=== PATIENT | male | born 1950 | race Caucasian/White ===

== ENCOUNTER 2022-10-20 10:32 | Inpatient (IN) | payer OTHER ==
[~2022-10-20] VITALS: Ht 167.6 cm; Wt 74.4 kg
[2022-10-20 10:47] VITALS: BP_SYST 106
[2022-10-20 11:27] LABS: BASOPHILS % (AUTO) 0.4 % (0.0-2.0); EOSINOPHILS # (AUTO) 0.1 K/uL (0.0-0.4); EOSINOPHILS % (AUTO) 1.3 % (0.0-4.0); HEMATOCRIT 23.8 % (36-54); HEMOGLOBIN 7.8 g/dL (14.0-18.0); LYMPHOCYTES # (AUTO) 1.5 K/uL (1.0-5.5); LYMPHOCYTES % (AUTO) 20.8 % (20.5-51.5); MEAN CORPUSCULAR HEMOGLOBIN 25 pg (27-31); MEAN CORPUSCULAR HGB CONC 33 % (32-36); MEAN CORPUSCULAR VOLUME 76 fL (79.0-98.0); MONOCYTES # (AUTO) 0.7 K/uL (0.0-1.0); MONOCYTES % (AUTO) 8.8 % (1.7-9.3); NEUTROPHILS # (AUTO) 5.1 K/uL (1.8-7.7); NEUTROPHILS % (AUTO) 68.7 % (40.0-70.0); PLATELET COUNT (AUTO) 271 K/uL (130-430); RED BLOOD CELL COUNT(AUTO) 3.13 MIL/uL (4.2-6.2); WHITE BLOOD COUNT (AUTO) 7.4 K/uL (4.8-10.8)
[2022-10-20] MEDS ORDERED: KETOROLAC TROMETHAMINE 30 MG VIAL IVP ONE (11:45)
[2022-10-20] MEDS ORDERED: GABAPENTIN 300 MG CAPSULE PO ONE (11:45)
[2022-10-20 11:50] LABS: ANION GAP 11 (5-15); CALCIUM 8.7 mg/dL (8.4-11.0); CHLORIDE 98 mmol/L (98-107); CREATININE 1.68 mg/dL (0.55-1.30); GLUCOSE 248 mg/dL (70-99); UREA NITROGEN, BLOOD 64 mg/dL (8-21)
[2022-10-20 11:57] LABS: ALANINE AMINOTRANSFERASE 16 U/L (12-78); ALBUMIN 2.9 g/dL (3.4-4.8); ASPARTATE AMINOTRANSFERASE 44 U/L (10-37); TOTAL BILIRUBIN 0.4 mg/dL (0.0-1.0)
[2022-10-20] MEDS ORDERED: NACL 0.9% 1,000 ML IV ONE (12:15)
[2022-10-20] MEDS ORDERED: *LOVENOX 1MG/KG Q24H/PHARMACY XX ONE (13:45)
[2022-10-20 14:35] LABS: BILIRUBIN,URINE NEGATIVE (NEGATIVE); BLOOD, URINE NEGATIVE (NEGATIVE); CLARITY/URINE CLEAR (CLEAR); COLOR,URINE YELLOW (YELLOW); GLUCOSE,URINE NEGATIVE (NEGATIVE); KETONES,URINE NEGATIVE (NEGATIVE); LEUKOCYTE ESTERASE ,URINE NEGATIVE (NEGATIVE); NITRITE, URINE NEGATIVE (NEGATIVE); PH,URINE 5.5 (5.0-8.0); PROTEIN URINE NEGATIVE (NEGATIVE); UROBILINOGEN,URINE 0.2 (0.2-1.0)
[2022-10-20] MEDS ORDERED: KETOROLAC TROMETHAMINE 30 MG VIAL ONE (16:40)
[2022-10-20] MEDS ORDERED: ACETAMINOPHEN 500 MG TABLET PO ONE (16:45)
[2022-10-20] MEDS ORDERED: FAMO40TA7 PO (17:04)
[2022-10-20] MEDS ORDERED: LIP40 PO (17:04)
[2022-10-20] MEDS ORDERED: FERR325T30 PO (17:04)
[2022-10-20] MEDS ORDERED: DOCU250C14 PO (17:04)
[2022-10-20] MEDS ORDERED: ALBU2TAB17 PO (17:04)
[2022-10-20] MEDS ORDERED: ASA81 PO (17:04)
[2022-10-20] MEDS ORDERED: APIX5TAB4 PO ×2 (17:04→22:02)
[2022-10-20] MEDS ORDERED: AMLO2.5T2 PO (17:04)
[2022-10-20 17:48] VITALS: BP_SYST 123
[2022-10-20 17:56] VITALS: BP_SYST 123
[2022-10-20] MEDS ORDERED: INSULIN LISPRO SLIDING SCALE 100 UNITS/ML, 3 ML VIAL (humaLOG) SUBCUT PRN (19:15)
[2022-10-20 20:00] VITALS: BP_SYST 108
[2022-10-20] MEDS: APIXABAN 2.5 MG TABLET PO SCH (20:57)
[2022-10-20] MEDS: AMIODARONE HCL 200 MG TABLET PO SCH (21:02)
[2022-10-20] MEDS ORDERED: DEXTROSE 50% JECT 50 ML DISP.SYRIN IVP PRN (22:00)
[2022-10-20] MEDS ORDERED: IBUP-1970 PO (22:02)
[2022-10-20] MEDS ORDERED: MECL-225 PO (22:02)
[2022-10-20] MEDS ORDERED: GABA-533 PO ×2 (22:02)
[2022-10-20] MEDS ORDERED: FURO40TA5 PO (22:02)
[2022-10-20] MEDS ORDERED: LISI20TA30 PO (22:02)
[2022-10-20] MEDS ORDERED: LACT10SO6 PO (22:02)
[2022-10-20] MEDS ORDERED: [UNRECOGNIZED DRUG - CODE] PO (22:02)
[2022-10-20] MEDS ORDERED: GLIM1TAB PO (22:02)
[2022-10-20] MEDS ORDERED: MONT-40 PO (22:03)
[2022-10-20] MEDS ORDERED: RELU120T (22:03)
[2022-10-20] MEDS ORDERED: TRAZ-250 PO (22:03)
[2022-10-20] MEDS ORDERED: OMEP-268 PO (22:03)
[2022-10-20] MEDS ORDERED: PROC-14 PO (22:03)
[2022-10-20] MEDS ORDERED: MOM PO (22:03)
[2022-10-20] MEDS ORDERED: POTA-197 PO (22:03)
[2022-10-20] MEDS ORDERED: METF-518 PO (22:03)
[2022-10-20] MEDS ORDERED: TRAM50TA2 PO (22:03)
[2022-10-20] MEDS ORDERED: METO25TA3 PO (22:03)
[2022-10-20] MEDS ORDERED: DOCU250C75 PO (22:03)
[2022-10-20] MEDS ORDERED: PHEDM120 PO (22:03)
[2022-10-20] MEDS ORDERED: PIOG30TA70 PO (22:03)
[2022-10-20] MEDS ORDERED: BLOO-360 XX (22:03)
[2022-10-20] MEDS ORDERED: POTASSIUM CHLORIDE 20 MEQ TAB.PRT.SR PO PRN (22:15)
[2022-10-20] MEDS ORDERED: IPRATROPIUM/ALBUTEROL SULFATE 3 ML AMPUL.NEB (DUONEB) INH PRN (22:15)
[2022-10-20] MEDS: traMADol HCL HCL 50 MG TABLET (ULTRAM) PO PRN (23:20)
[2022-10-20] MEDS: GABAPENTIN 100 MG CAPSULE PO SCH (23:22)
[2022-10-20 23:30] VITALS: BP_SYST 123
[2022-10-21] VITALS (8 sets, daily range): BP systolic 94–128
[2022-10-21] MEDS ORDERED: traZODone HCL 50 MG TABLET (DESYREL) PO ONE (02:30)
[2022-10-21] MEDS ORDERED: MORPHINE 2 MG/ML INJ. SYRINGE IVP ONE (02:30)
[2022-10-21] MEDS: ACETAMINOPHEN 325 MG TABLET PO PRN ×2 (02:40→20:34)
[2022-10-21 06:39] LABS: BASOPHILS % (AUTO) 0.4 % (0.0-2.0); EOSINOPHILS # (AUTO) 0.1 K/uL (0.0-0.4); LYMPHOCYTES # (AUTO) 2.2 K/uL (1.0-5.5); LYMPHOCYTES % (AUTO) 30.6 % (20.5-51.5); MEAN CORPUSCULAR HEMOGLOBIN 25 pg (27-31); MEAN CORPUSCULAR HGB CONC 33 % (32-36); MEAN CORPUSCULAR VOLUME 76 fL (79.0-98.0); MONOCYTES # (AUTO) 0.6 K/uL (0.0-1.0); MONOCYTES % (AUTO) 8.1 % (1.7-9.3); NEUTROPHILS # (AUTO) 4.2 K/uL (1.8-7.7); NEUTROPHILS % (AUTO) 58.9 % (40.0-70.0); PLATELET COUNT (AUTO) 263 K/uL (130-430); RED BLOOD CELL COUNT(AUTO) 2.77 MIL/uL (4.2-6.2); RED CELL DISTRIBUTION WIDTH 17.9 % (9.0-15.0); RETICULOCYTE COUNT 2.2 % (0.5-1.5); WHITE BLOOD COUNT (AUTO) 7.1 K/uL (4.8-10.8)
[2022-10-21 07:43] LABS: TOTAL IRON BIND. CAPACITY 219 ug/dL (250-450)
[2022-10-21 07:53] LABS: ALANINE AMINOTRANSFERASE 17 U/L (12-78); ALBUMIN 2.7 g/dL (3.4-4.8); ANION GAP 10 (5-15); ASPARTATE AMINOTRANSFERASE 36 U/L (10-37); CALCIUM 8.8 mg/dL (8.4-11.0); CHLORIDE 100 mmol/L (98-107); CHOLESTEROL 183 mg/dL (<200); CREATININE 1.74 mg/dL (0.55-1.30); GLUCOSE 142 mg/dL (70-99); HDL CHOLESTEROL 50 mg/dL (>45); THYROID STIMULATING HORMONE 1.79 uIu/mL (0.34-4.82); TOTAL BILIRUBIN 0.3 mg/dL (0.0-1.0); TRIGLYCERIDES 97 mg/dL (30-150); UREA NITROGEN, BLOOD 68 mg/dL (8-21)
[2022-10-21 07:55] LABS: INR 1.2 (0.80-1.20); PROTHROMBIN TIME 12.1 SECS (9.5-12.5)
[2022-10-21 08:02] LABS: HEMOGLOBIN 6.9 g/dL (14.0-18.0)
[2022-10-21] MEDS: ASPIRIN 81 MG TAB.CHEW PO SCH (08:54)
[2022-10-21] MEDS: FUROSEMIDE 40 MG TABLET PO SCH (08:55)
[2022-10-21] MEDS: AMIODARONE HCL 200 MG TABLET PO SCH ×2 (08:55→20:35)
[2022-10-21] MEDS: ALBUTEROL SULFATE 2 MG TABLET PO SCH ×3 (08:56→21:00)
[2022-10-21] MEDS: DOCUSATE SODIUM 250 MG CAPSULE PO SCH (08:56)
[2022-10-21] MEDS: ATORVASTATIN 20 MG TABLET PO SCH (08:57)
[2022-10-21] MEDS: GABAPENTIN 100 MG CAPSULE PO SCH ×3 (08:57→20:34)
[2022-10-21] MEDS: FERROUS SULFATE 325 MG TABLET.DR PO SCH (08:57)
[2022-10-21] MEDS: FAMOTIDINE 20 MG TABLET PO SCH (08:57)
[2022-10-21] MEDS: traMADol HCL HCL 50 MG TABLET (ULTRAM) PO PRN ×2 (08:58→18:32)
[2022-10-21] MEDS: APIXABAN 2.5 MG TABLET PO SCH ×2 (08:59→20:40)
[2022-10-21] MEDS: lisinopriL 20 MG TABLET PO SCH (09:00)
[2022-10-21] MEDS ORDERED: DOCUSATE SODIUM 250 MG CAPSULE PO SCH (09:00)
[2022-10-21] MEDS ORDERED: METOPROLOL SUCCINATE 25 MG TAB.SR.24H (TOPROL XL) PO SCH (09:00)
[2022-10-21] MEDS: METOPROLOL SUCCINATE 25 MG TAB.SR.24H (TOPROL XL) PO SCH (12:16)
[2022-10-21] MEDS: INSULIN REGULAR, HUMAN 100 UNITS/ML, 3 ML VIAL (humuLIN R) SUBCUT PRN ×3 (12:19→20:41)
[2022-10-21 17:17] LABS: BILIRUBIN,URINE NEGATIVE (NEGATIVE); BLOOD, URINE NEGATIVE (NEGATIVE); CLARITY/URINE CLEAR (CLEAR); COLOR,URINE YELLOW (YELLOW); GLUCOSE,URINE NEGATIVE (NEGATIVE); KETONES,URINE NEGATIVE (NEGATIVE); LEUKOCYTE ESTERASE ,URINE NEGATIVE (NEGATIVE); NITRITE, URINE NEGATIVE (NEGATIVE); PH,URINE 5.5 (5.0-8.0); PROTEIN URINE NEGATIVE (NEGATIVE); UROBILINOGEN,URINE 0.2 (0.2-1.0)
[2022-10-21] MEDS: MONTELUKAST 10 MG TABLET PO SCH (17:18)
[2022-10-21] MEDS: traZODone HCL 50 MG TABLET (DESYREL) PO SCH (20:33)
[2022-10-22 00:36] VITALS: BP_SYST 98
[2022-10-22] MEDS: traMADol HCL HCL 50 MG TABLET (ULTRAM) PO PRN ×3 (06:12→17:27)
[2022-10-22 06:27] LABS: BASOPHILS % (AUTO) 0.6 % (0.0-2.0); EOSINOPHILS # (AUTO) 0.2 K/uL (0.0-0.4); EOSINOPHILS % (AUTO) 2.1 % (0.0-4.0); HEMATOCRIT 27.7 % (36-54); HEMOGLOBIN 9.2 g/dL (14.0-18.0); LYMPHOCYTES # (AUTO) 1.5 K/uL (1.0-5.5); LYMPHOCYTES % (AUTO) 20.3 % (20.5-51.5); MEAN CORPUSCULAR HEMOGLOBIN 26 pg (27-31); MEAN CORPUSCULAR HGB CONC 33 % (32-36); MEAN CORPUSCULAR VOLUME 78 fL (79.0-98.0); MONOCYTES # (AUTO) 0.6 K/uL (0.0-1.0); MONOCYTES % (AUTO) 8.6 % (1.7-9.3); NEUTROPHILS % (AUTO) 68.4 % (40.0-70.0); PLATELET COUNT (AUTO) 252 K/uL (130-430); RED BLOOD CELL COUNT(AUTO) 3.56 MIL/uL (4.2-6.2); RED CELL DISTRIBUTION WIDTH 18.9 % (9.0-15.0); WHITE BLOOD COUNT (AUTO) 7.3 K/uL (4.8-10.8)
[2022-10-22 06:44] LABS: ANION GAP 9 (5-15); CALCIUM 9.5 mg/dL (8.4-11.0); CHLORIDE 101 mmol/L (98-107); CREATININE 1.43 mg/dL (0.55-1.30); GLUCOSE 164 mg/dL (70-99); UREA NITROGEN, BLOOD 51 mg/dL (8-21)
[2022-10-22 07:50] VITALS: BP_SYST 110
[2022-10-22 08:06] LABS: FREE PSA >50.00 ng/mL
[2022-10-22] MEDS: METOPROLOL SUCCINATE 25 MG TAB.SR.24H (TOPROL XL) PO SCH (08:10)
[2022-10-22] MEDS: ALBUTEROL SULFATE 2 MG TABLET PO SCH ×3 (08:10→21:29)
[2022-10-22] MEDS: ASPIRIN 81 MG TAB.CHEW PO SCH (08:10)
[2022-10-22] MEDS: lisinopriL 20 MG TABLET PO SCH (08:11)
[2022-10-22] MEDS: DOCUSATE SODIUM 250 MG CAPSULE PO SCH (08:11)
[2022-10-22] MEDS: FAMOTIDINE 20 MG TABLET PO SCH (08:11)
[2022-10-22] MEDS: ATORVASTATIN 20 MG TABLET PO SCH (08:11)
[2022-10-22] MEDS: FERROUS SULFATE 325 MG TABLET.DR PO SCH (08:12)
[2022-10-22] MEDS: FUROSEMIDE 40 MG TABLET PO SCH (08:12)
[2022-10-22] MEDS: GABAPENTIN 100 MG CAPSULE PO SCH ×3 (08:13→21:13)
[2022-10-22] MEDS: AMIODARONE HCL 200 MG TABLET PO SCH ×2 (08:13→21:00)
[2022-10-22] MEDS: APIXABAN 2.5 MG TABLET PO SCH ×2 (08:18→21:25)
[2022-10-22] MEDS: INSULIN REGULAR, HUMAN 100 UNITS/ML, 3 ML VIAL (humuLIN R) SUBCUT PRN ×3 (11:23→21:25)
[2022-10-22 11:25] VITALS: BP_SYST 103
[2022-10-22] MEDS ORDERED: ACETAMINOPHEN 325 MG TABLET PO PRN (12:30)
[2022-10-22] MEDS ORDERED: DICLOFENAC SODIUM 25 MG TABLET.DR PO ONE (12:45)
[2022-10-22] MEDS ORDERED: MULTIVITS,CA,MINERALS/IRON/FA 1 TABLET PO ONE (12:45)
[2022-10-22 13:06] LABS: % FREE PSA >7.6 % (.)
[2022-10-22 15:35] VITALS: BP_SYST 136
[2022-10-22] MEDS: MONTELUKAST 10 MG TABLET PO SCH (17:27)
[2022-10-22 21:00] VITALS: BP_SYST 98
[2022-10-22] MEDS: traZODone HCL 50 MG TABLET (DESYREL) PO SCH (21:13)
[2022-10-22] MEDS: DICLOFENAC SODIUM 25 MG TABLET.DR PO SCH (21:14)
[2022-10-23 06:00] VITALS: BP_SYST 117
[2022-10-23 07:18] LABS: BASOPHILS % (AUTO) 0.5 % (0.0-2.0); EOSINOPHILS # (AUTO) 0.3 K/uL (0.0-0.4); EOSINOPHILS % (AUTO) 4.4 % (0.0-4.0); HEMATOCRIT 26.4 % (36-54); HEMOGLOBIN 8.7 g/dL (14.0-18.0); LYMPHOCYTES # (AUTO) 1.8 K/uL (1.0-5.5); LYMPHOCYTES % (AUTO) 29.3 % (20.5-51.5); MEAN CORPUSCULAR HEMOGLOBIN 26 pg (27-31); MEAN CORPUSCULAR HGB CONC 33 % (32-36); MEAN CORPUSCULAR VOLUME 79 fL (79.0-98.0); MONOCYTES # (AUTO) 0.5 K/uL (0.0-1.0); MONOCYTES % (AUTO) 7.9 % (1.7-9.3); NEUTROPHILS # (AUTO) 3.6 K/uL (1.8-7.7); NEUTROPHILS % (AUTO) 57.9 % (40.0-70.0); PLATELET COUNT (AUTO) 231 K/uL (130-430); RED BLOOD CELL COUNT(AUTO) 3.35 MIL/uL (4.2-6.2); RED CELL DISTRIBUTION WIDTH 18.9 % (9.0-15.0); WHITE BLOOD COUNT (AUTO) 6.1 K/uL (4.8-10.8)
[2022-10-23 07:24] LABS: ALANINE AMINOTRANSFERASE 22 U/L (12-78); ALBUMIN 2.4 g/dL (3.4-4.8); ANION GAP 10 (5-15); ASPARTATE AMINOTRANSFERASE 81 U/L (10-37); CALCIUM 9.5 mg/dL (8.4-11.0); CHLORIDE 100 mmol/L (98-107); CREATININE 1.58 mg/dL (0.55-1.30); GLUCOSE 134 mg/dL (70-99); TOTAL BILIRUBIN 0.3 mg/dL (0.0-1.0); UREA NITROGEN, BLOOD 53 mg/dL (8-21)
[2022-10-23 08:55] VITALS: BP_SYST 108
[2022-10-23] MEDS: DOCUSATE SODIUM 250 MG CAPSULE PO SCH ×2 (09:37→22:14)
[2022-10-23] MEDS: MULTIVITS,CA,MINERALS/IRON/FA 1 TABLET PO SCH (09:37)
[2022-10-23] MEDS: FERROUS SULFATE 325 MG TABLET.DR PO SCH (09:38)
[2022-10-23] MEDS: ASPIRIN 81 MG TAB.CHEW PO SCH (09:38)
[2022-10-23] MEDS: FAMOTIDINE 20 MG TABLET PO SCH (09:38)
[2022-10-23] MEDS: ATORVASTATIN 20 MG TABLET PO SCH (09:38)
[2022-10-23] MEDS: AMIODARONE HCL 200 MG TABLET PO SCH ×2 (09:39→22:14)
[2022-10-23] MEDS: lisinopriL 20 MG TABLET PO SCH (09:39)
[2022-10-23] MEDS: FUROSEMIDE 40 MG TABLET PO SCH (09:40)
[2022-10-23] MEDS: METOPROLOL SUCCINATE 25 MG TAB.SR.24H (TOPROL XL) PO SCH (09:40)
[2022-10-23] MEDS: ALBUTEROL SULFATE 2 MG TABLET PO SCH ×3 (09:40→22:34)
[2022-10-23] MEDS: GABAPENTIN 100 MG CAPSULE PO SCH ×3 (09:41→22:14)
[2022-10-23] MEDS: APIXABAN 2.5 MG TABLET PO SCH (09:45)
[2022-10-23] MEDS: DICLOFENAC SODIUM 25 MG TABLET.DR PO SCH ×2 (09:50→22:14)
[2022-10-23] MEDS: INSULIN REGULAR, HUMAN 100 UNITS/ML, 3 ML VIAL (humuLIN R) SUBCUT PRN (12:45)
[2022-10-23] MEDS ORDERED: LACTULOSE 20 GM/30 ML UDC PO ONE (15:00)
[2022-10-23] MEDS ORDERED: DOCUSATE SODIUM 250 MG CAPSULE PO ONE (15:15)
[2022-10-23] MEDS ORDERED: PSYLLIUM HUSK 1 PKT PACKET PO ONE (15:30)
[2022-10-23] MEDS: traMADol HCL HCL 50 MG TABLET (ULTRAM) PO PRN ×2 (15:46→23:31)
[2022-10-23 15:48] VITALS: BP_SYST 102
[2022-10-23] MEDS: MONTELUKAST 10 MG TABLET PO SCH (17:34)
[2022-10-23 20:00] VITALS: BP_SYST 109
[2022-10-23] MEDS ORDERED: APIXABAN 2.5 MG TABLET PO SCH (21:00)
[2022-10-23] MEDS: PSYLLIUM HUSK 1 PKT PACKET PO SCH (22:16)
[2022-10-23] MEDS: traZODone HCL 50 MG TABLET (DESYREL) PO SCH (22:16)
[2022-10-23] MEDS: PANTOPRAZOLE SODIUM 40 MG/VIAL (PROTONIX) IVP SCH (22:26)
[2022-10-24 00:13] VITALS: BP_SYST 145
[2022-10-24] MEDS: INSULIN REGULAR, HUMAN 100 UNITS/ML, 3 ML VIAL (humuLIN R) SUBCUT PRN (06:31)
[2022-10-24 06:48] LABS: BASOPHILS # (AUTO) 0.1 K/uL (0.0-0.2); BASOPHILS % (AUTO) 0.7 % (0.0-2.0); EOSINOPHILS # (AUTO) 0.4 K/uL (0.0-0.4); EOSINOPHILS % (AUTO) 4.8 % (0.0-4.0); HEMATOCRIT 27.5 % (36-54); LYMPHOCYTES % (AUTO) 23.3 % (20.5-51.5); MEAN CORPUSCULAR HEMOGLOBIN 26 pg (27-31); MEAN CORPUSCULAR HGB CONC 33 % (32-36); MEAN CORPUSCULAR VOLUME 78 fL (79.0-98.0); MONOCYTES # (AUTO) 0.6 K/uL (0.0-1.0); MONOCYTES % (AUTO) 7.2 % (1.7-9.3); NEUTROPHILS # (AUTO) 5.4 K/uL (1.8-7.7); PLATELET COUNT (AUTO) 263 K/uL (130-430); RED BLOOD CELL COUNT(AUTO) 3.51 MIL/uL (4.2-6.2); RED CELL DISTRIBUTION WIDTH 19.1 % (9.0-15.0); WHITE BLOOD COUNT (AUTO) 8.5 K/uL (4.8-10.8)
[2022-10-24 07:16] LABS: ANION GAP 9 (5-15); CALCIUM 9.3 mg/dL (8.4-11.0); CHLORIDE 99 mmol/L (98-107); CREATININE 1.49 mg/dL (0.55-1.30); GLUCOSE 162 mg/dL (70-99); UREA NITROGEN, BLOOD 51 mg/dL (8-21)
[2022-10-24 08:00] VITALS: BP_SYST 128
[2022-10-24] MEDS ORDERED: METF-381 PO (08:59)
[2022-10-24] MEDS: ASPIRIN 81 MG TAB.CHEW PO SCH (09:44)
[2022-10-24] MEDS: ALBUTEROL SULFATE 2 MG TABLET PO SCH ×3 (09:45→21:30)
[2022-10-24] MEDS: ATORVASTATIN 20 MG TABLET PO SCH (09:46)
[2022-10-24] MEDS: LACTULOSE 20 GM/30 ML UDC PO SCH (09:46)
[2022-10-24] MEDS: PSYLLIUM HUSK 1 PKT PACKET PO SCH ×2 (09:46→21:33)
[2022-10-24] MEDS: FAMOTIDINE 20 MG TABLET PO SCH (09:47)
[2022-10-24] MEDS: GABAPENTIN 100 MG CAPSULE PO SCH ×3 (09:47→21:31)
[2022-10-24] MEDS: FUROSEMIDE 40 MG TABLET PO SCH (09:47)
[2022-10-24] MEDS: FERROUS SULFATE 325 MG TABLET.DR PO SCH (09:47)
[2022-10-24] MEDS: METOPROLOL SUCCINATE 25 MG TAB.SR.24H (TOPROL XL) PO SCH (09:48)
[2022-10-24] MEDS: lisinopriL 20 MG TABLET PO SCH (09:48)
[2022-10-24] MEDS: MULTIVITS,CA,MINERALS/IRON/FA 1 TABLET PO SCH (09:48)
[2022-10-24] MEDS: AMIODARONE HCL 200 MG TABLET PO SCH ×2 (09:49→21:32)
[2022-10-24] MEDS: DOCUSATE SODIUM 250 MG CAPSULE PO SCH ×2 (09:49→21:32)
[2022-10-24] MEDS: PANTOPRAZOLE SODIUM 40 MG/VIAL (PROTONIX) IVP SCH ×2 (11:14→21:23)
[2022-10-24 11:26] VITALS: BP_SYST 127
[2022-10-24] MEDS: traMADol HCL HCL 50 MG TABLET (ULTRAM) PO PRN (11:32)
[2022-10-24] MEDS ORDERED: traMADol HCL HCL 50 MG TABLET (ULTRAM) PO PRN (14:15)
[2022-10-24] MEDS ORDERED: traMADol HCL HCL 50 MG TABLET (ULTRAM) PO ONE (14:30)
[2022-10-24 15:12] VITALS: BP_SYST 121
[2022-10-24] MEDS: metFORMIN HCL 500 MG TABLET PO SCH (17:02)
[2022-10-24] MEDS: MONTELUKAST 10 MG TABLET PO SCH (17:03)
[2022-10-24] MEDS ORDERED: COMMUNICATION ORDER XX ONE (19:45)
[2022-10-24 20:00] VITALS: BP_SYST 142
[2022-10-24] MEDS: traZODone HCL 50 MG TABLET (DESYREL) PO SCH (21:32)
[2022-10-24] MEDS ORDERED: METOPROLOL TARTRATE 5 MG/5 ML VIAL IVP ONE (23:30)
[2022-10-25] VITALS: BP_SYST 148
[2022-10-25] MEDS: QUEtiapine FUMARATE 25 MG TABLET PO SCH ×2 (00:41→21:08)
[2022-10-25] MEDS ORDERED: METOPROLOL TARTRATE 5 MG/5 ML VIAL IVP ONE (02:15)
[2022-10-25] MEDS: ACETAMINOPHEN 325 MG TABLET PO PRN (04:56)
[2022-10-25] MEDS ORDERED: LORazepam 2 MG/ML VIAL IVP ONE (06:30)
[2022-10-25 07:40] LABS: BASOPHILS % (AUTO) 0.5 % (0.0-2.0); EOSINOPHILS # (AUTO) 0.1 K/uL (0.0-0.4); EOSINOPHILS % (AUTO) 1.2 % (0.0-4.0); HEMATOCRIT 27.4 % (36-54); HEMOGLOBIN 9.1 g/dL (14.0-18.0); LYMPHOCYTES # (AUTO) 1.4 K/uL (1.0-5.5); LYMPHOCYTES % (AUTO) 17.5 % (20.5-51.5); MEAN CORPUSCULAR HEMOGLOBIN 26 pg (27-31); MEAN CORPUSCULAR HGB CONC 33 % (32-36); MEAN CORPUSCULAR VOLUME 78 fL (79.0-98.0); MONOCYTES # (AUTO) 0.7 K/uL (0.0-1.0); MONOCYTES % (AUTO) 9.1 % (1.7-9.3); NEUTROPHILS # (AUTO) 5.6 K/uL (1.8-7.7); NEUTROPHILS % (AUTO) 71.7 % (40.0-70.0); PLATELET COUNT (AUTO) 260 K/uL (130-430); RED BLOOD CELL COUNT(AUTO) 3.54 MIL/uL (4.2-6.2); RED CELL DISTRIBUTION WIDTH 19.3 % (9.0-15.0); WHITE BLOOD COUNT (AUTO) 7.8 K/uL (4.8-10.8)
[2022-10-25 07:54] LABS: ANION GAP 11 (5-15); CALCIUM 9.2 mg/dL (8.4-11.0); CHLORIDE 101 mmol/L (98-107); CREATININE 1.11 mg/dL (0.55-1.30); GLUCOSE 155 mg/dL (70-99); UREA NITROGEN, BLOOD 30 mg/dL (8-21)
[2022-10-25 08:00] VITALS: BP_SYST 123
[2022-10-25] MEDS: PSYLLIUM HUSK 1 PKT PACKET PO SCH ×2 (09:38→21:07)
[2022-10-25] MEDS: LACTULOSE 20 GM/30 ML UDC PO SCH (09:38)
[2022-10-25] MEDS: metFORMIN HCL 500 MG TABLET PO SCH ×2 (09:39→17:48)
[2022-10-25] MEDS: MULTIVITS,CA,MINERALS/IRON/FA 1 TABLET PO SCH (09:39)
[2022-10-25] MEDS: ALBUTEROL SULFATE 2 MG TABLET PO SCH ×3 (09:39→21:08)
[2022-10-25] MEDS: FERROUS SULFATE 325 MG TABLET.DR PO SCH (09:40)
[2022-10-25] MEDS: ATORVASTATIN 20 MG TABLET PO SCH (09:40)
[2022-10-25] MEDS: GABAPENTIN 100 MG CAPSULE PO SCH ×3 (09:40→21:08)
[2022-10-25] MEDS: NEPHROVITE, (FOLIC ACID/VITAMIN B COMP W-C 1 TAB) PO SCH (09:40)
[2022-10-25] MEDS: DOCUSATE SODIUM 250 MG CAPSULE PO SCH ×2 (09:40→21:07)
[2022-10-25] MEDS: FAMOTIDINE 20 MG TABLET PO SCH (09:41)
[2022-10-25] MEDS: FUROSEMIDE 40 MG TABLET PO SCH (09:41)
[2022-10-25] MEDS: AMIODARONE HCL 200 MG TABLET PO SCH ×2 (09:41→21:08)
[2022-10-25] MEDS: PANTOPRAZOLE SODIUM 40 MG/VIAL (PROTONIX) IVP SCH ×2 (09:42→20:30)
[2022-10-25] MEDS: lisinopriL 20 MG TABLET PO SCH (09:42)
[2022-10-25] MEDS: METOPROLOL SUCCINATE 25 MG TAB.SR.24H (TOPROL XL) PO SCH (09:43)
[2022-10-25] MEDS: ORGOVYX PO SCH (09:45)
[2022-10-25] MEDS ORDERED: ZOLEDRONIC ACID 4 MG in NS 100 ML IV ONE (10:00)
[2022-10-25] MEDS: INSULIN REGULAR, HUMAN 100 UNITS/ML, 3 ML VIAL (humuLIN R) SUBCUT PRN ×3 (11:12→21:24)
[2022-10-25 12:53] VITALS: BP_SYST 133
[2022-10-25 17:06] VITALS: BP_SYST 152
[2022-10-25] MEDS: MONTELUKAST 10 MG TABLET PO SCH (17:47)
[2022-10-25] MEDS ORDERED: PRO40 PO (17:53)
[2022-10-25 20:00] VITALS: BP_SYST 116
[2022-10-25] MEDS: traZODone HCL 50 MG TABLET (DESYREL) PO SCH (21:07)
[2022-10-26] VITALS (7 sets, daily range): BP systolic 90–144
[2022-10-26] MEDS ORDERED: TAMSULOSIN HCL 0.4 MG CAP PO ONE (05:15)
[2022-10-26] MEDS: PSYLLIUM HUSK 1 PKT PACKET PO SCH ×2 (09:04→20:15)
[2022-10-26] MEDS: ORGOVYX PO SCH (09:05)
[2022-10-26] MEDS: NEPHROVITE, (FOLIC ACID/VITAMIN B COMP W-C 1 TAB) PO SCH (09:06)
[2022-10-26] MEDS: ALBUTEROL SULFATE 2 MG TABLET PO SCH ×3 (09:06→20:19)
[2022-10-26] MEDS: LACTULOSE 20 GM/30 ML UDC PO SCH (09:06)
[2022-10-26] MEDS: metFORMIN HCL 500 MG TABLET PO SCH ×2 (09:07→18:03)
[2022-10-26] MEDS: FUROSEMIDE 40 MG TABLET PO SCH (09:07)
[2022-10-26] MEDS: DOCUSATE SODIUM 250 MG CAPSULE PO SCH ×2 (09:07→20:14)
[2022-10-26] MEDS: MULTIVITS,CA,MINERALS/IRON/FA 1 TABLET PO SCH (09:08)
[2022-10-26] MEDS: FAMOTIDINE 20 MG TABLET PO SCH (09:08)
[2022-10-26] MEDS: GABAPENTIN 100 MG CAPSULE PO SCH ×3 (09:08→20:14)
[2022-10-26] MEDS: lisinopriL 20 MG TABLET PO SCH (09:09)
[2022-10-26] MEDS: METOPROLOL SUCCINATE 25 MG TAB.SR.24H (TOPROL XL) PO SCH (09:09)
[2022-10-26] MEDS: AMIODARONE HCL 200 MG TABLET PO SCH ×2 (09:10→20:14)
[2022-10-26] MEDS: ATORVASTATIN 20 MG TABLET PO SCH (09:27)
[2022-10-26] MEDS: PANTOPRAZOLE SODIUM 40 MG/VIAL (PROTONIX) IVP SCH ×2 (09:47→21:19)
[2022-10-26] MEDS ORDERED: ZOLEDRONIC ACID 4 MG in NS 100 ML IV ONE (10:00)
[2022-10-26] MEDS ORDERED: NACL 0.9% 1,000 ML IV ONE ×3 (10:45→12:15)
[2022-10-26 11:16] LABS: BASOPHILS % (AUTO) 0.5 % (0.0-2.0); EOSINOPHILS % (AUTO) 0.2 % (0.0-4.0); HEMATOCRIT 24.5 % (36-54); LYMPHOCYTES # (AUTO) 1.5 K/uL (1.0-5.5); LYMPHOCYTES % (AUTO) 16.4 % (20.5-51.5); MEAN CORPUSCULAR HEMOGLOBIN 26 pg (27-31); MEAN CORPUSCULAR HGB CONC 33 % (32-36); MEAN CORPUSCULAR VOLUME 79 fL (79.0-98.0); MONOCYTES % (AUTO) 11.4 % (1.7-9.3); NEUTROPHILS # (AUTO) 6.4 K/uL (1.8-7.7); NEUTROPHILS % (AUTO) 71.5 % (40.0-70.0); PLATELET COUNT (AUTO) 225 K/uL (130-430); RED BLOOD CELL COUNT(AUTO) 3.11 MIL/uL (4.2-6.2)
[2022-10-26 11:26] LABS: ANION GAP 12 (5-15); CALCIUM 8.4 mg/dL (8.4-11.0); CHLORIDE 102 mmol/L (98-107); CREATININE 2.48 mg/dL (0.55-1.30); GLUCOSE 147 mg/dL (70-99); UREA NITROGEN, BLOOD 45 mg/dL (8-21)
[2022-10-26 11:31] LABS: ALANINE AMINOTRANSFERASE 15 U/L (12-78); ALBUMIN 1.9 g/dL (3.4-4.8); ASPARTATE AMINOTRANSFERASE 64 U/L (10-37); TOTAL BILIRUBIN 0.7 mg/dL (0.0-1.0)
[2022-10-26 12:50] LABS: BILIRUBIN,URINE NEGATIVE (NEGATIVE); BLOOD, URINE NEGATIVE (NEGATIVE); CLARITY/URINE CLEAR (CLEAR); COLOR,URINE YELLOW (YELLOW); GLUCOSE,URINE NEGATIVE (NEGATIVE); KETONES,URINE NEGATIVE (NEGATIVE); LEUKOCYTE ESTERASE ,URINE NEGATIVE (NEGATIVE); NITRITE, URINE NEGATIVE (NEGATIVE); PH,URINE 5.5 (5.0-8.0); PROTEIN URINE 1+ (NEGATIVE); UROBILINOGEN,URINE 0.2 (0.2-1.0)
[2022-10-26] MEDS: 0.45% NACL 1,000 ML IV SCH (17:05)
[2022-10-26] MEDS: INSULIN REGULAR, HUMAN 100 UNITS/ML, 3 ML VIAL (humuLIN R) SUBCUT PRN ×2 (17:18→21:18)
[2022-10-26] MEDS: MONTELUKAST 10 MG TABLET PO SCH (18:03)
[2022-10-26] MEDS: traZODone HCL 50 MG TABLET (DESYREL) PO SCH (20:14)
[2022-10-26] MEDS: QUEtiapine FUMARATE 25 MG TABLET PO SCH (20:16)
[2022-10-27] VITALS: BP_SYST 138
[2022-10-27] MEDS: ACETAMINOPHEN 325 MG TABLET PO PRN (00:22)
[2022-10-27 05:55] LABS: BASOPHILS % (AUTO) 0.4 % (0.0-2.0); EOSINOPHILS # (AUTO) 0.1 K/uL (0.0-0.4); EOSINOPHILS % (AUTO) 0.9 % (0.0-4.0); HEMATOCRIT 24.4 % (36-54); HEMOGLOBIN 7.9 g/dL (14.0-18.0); LYMPHOCYTES # (AUTO) 1.6 K/uL (1.0-5.5); MEAN CORPUSCULAR HEMOGLOBIN 25 pg (27-31); MEAN CORPUSCULAR HGB CONC 33 % (32-36); MEAN CORPUSCULAR VOLUME 78 fL (79.0-98.0); MONOCYTES # (AUTO) 0.7 K/uL (0.0-1.0); MONOCYTES % (AUTO) 8.3 % (1.7-9.3); NEUTROPHILS # (AUTO) 5.8 K/uL (1.8-7.7); NEUTROPHILS % (AUTO) 71.4 % (40.0-70.0); PLATELET COUNT (AUTO) 246 K/uL (130-430); RED BLOOD CELL COUNT(AUTO) 3.13 MIL/uL (4.2-6.2); RED CELL DISTRIBUTION WIDTH 19.7 % (9.0-15.0); WHITE BLOOD COUNT (AUTO) 8.1 K/uL (4.8-10.8)
[2022-10-27 06:28] LABS: ALANINE AMINOTRANSFERASE 21 U/L (12-78); ALBUMIN 1.8 g/dL (3.4-4.8); ANION GAP 12 (5-15); ASPARTATE AMINOTRANSFERASE 46 U/L (10-37); CALCIUM 8.6 mg/dL (8.4-11.0); CHLORIDE 103 mmol/L (98-107); CREATININE 1.59 mg/dL (0.55-1.30); GLUCOSE 141 mg/dL (70-99); TOTAL BILIRUBIN 0.7 mg/dL (0.0-1.0); UREA NITROGEN, BLOOD 40 mg/dL (8-21)
[2022-10-27] MEDS: 0.45% NACL 1,000 ML IV SCH (06:35)
[2022-10-27] MEDS: metFORMIN HCL 500 MG TABLET PO SCH (08:40)
[2022-10-27] MEDS: FUROSEMIDE 40 MG TABLET PO SCH (09:00)
[2022-10-27] MEDS: PSYLLIUM HUSK 1 PKT PACKET PO SCH (09:00)
[2022-10-27] MEDS: MULTIVITS,CA,MINERALS/IRON/FA 1 TABLET PO SCH (09:00)
[2022-10-27] MEDS: FAMOTIDINE 20 MG TABLET PO SCH (09:00)
[2022-10-27] MEDS: METOPROLOL SUCCINATE 25 MG TAB.SR.24H (TOPROL XL) PO SCH (09:00)
[2022-10-27] MEDS: ALBUTEROL SULFATE 2 MG TABLET PO SCH (09:00)
[2022-10-27] MEDS: lisinopriL 20 MG TABLET PO SCH (09:00)
[2022-10-27 09:03] VITALS: BP_SYST 111
[2022-10-27] MEDS: LACTULOSE 20 GM/30 ML UDC PO SCH (09:09)
[2022-10-27] MEDS: DOCUSATE SODIUM 250 MG CAPSULE PO SCH (09:10)
[2022-10-27] MEDS: NEPHROVITE, (FOLIC ACID/VITAMIN B COMP W-C 1 TAB) PO SCH (09:10)
[2022-10-27] MEDS: ATORVASTATIN 20 MG TABLET PO SCH (09:10)
[2022-10-27] MEDS: GABAPENTIN 100 MG CAPSULE PO SCH (09:14)
[2022-10-27] MEDS: AMIODARONE HCL 200 MG TABLET PO SCH (09:15)
[2022-10-27] MEDS: ORGOVYX PO SCH (09:24)
[2022-10-27] MEDS: PANTOPRAZOLE SODIUM 40 MG/VIAL (PROTONIX) IVP SCH (10:41)
[2022-10-27 12:14] VITALS: BP_SYST 101
[2022-10-27] MEDS: INSULIN REGULAR, HUMAN 100 UNITS/ML, 3 ML VIAL (humuLIN R) SUBCUT PRN (12:17)
[2022-10-31 11:53] LABS: FOLATE (FOLIC ACID) 8.9
== END 2022-10-27 14:15 | disposition hospice, home (50) | DRG 73 ==
LOC: SED 10:32 → STU 15:51
PROVIDERS: ADMIT Internal Medicine; ATTEND Internal Medicine
PROC: 30233N1 Transfusion of Nonautologous Red Blood Cells into Peripheral Vein, Percutaneous Approach (ICD-10-PCS; principal; 2022-10-21)
DX: E11.42 Type 2 diabetes mellitus with diabetic polyneuropathy (principal); I50.23 Acute on chronic systolic (congestive) heart failure; N17.0 Acute kidney failure with tubular necrosis; I13.0 Hypertensive heart and chronic kidney disease with heart failure and stage 1 through stage 4 chronic kidney disease, or unspecified chronic kidney disease; C79.51 Secondary malignant neoplasm of bone; I48.20 Chronic atrial fibrillation, unspecified; I82.541 Chronic embolism and thrombosis of right tibial vein; C61 Malignant neoplasm of prostate; D63.8 Anemia in other chronic diseases classified elsewhere; E11.22 Type 2 diabetes mellitus with diabetic chronic kidney disease; N18.9 Chronic kidney disease, unspecified; E78.5 Hyperlipidemia, unspecified; I48.0 Paroxysmal atrial fibrillation; J44.9 Chronic obstructive pulmonary disease, unspecified; Z20.822 Contact with and (suspected) exposure to COVID-19; Z79.01 Long term (current) use of anticoagulants; Z79.84 Long term (current) use of oral hypoglycemic drugs; Z79.899 Other long term (current) drug therapy; Z86.73 Personal history of transient ischemic attack (TIA), and cerebral infarction without residual deficits; Z87.891 Personal history of nicotine dependence; Z85.46 Personal history of malignant neoplasm of prostate
CPT/HCPCS: 36415; 71045; 71250-TC; 73521; 76376; 76536-TC; 78306; 80048; 80053; 80061; 81003; 82140; 82272; 82607; 82728; 82746; 83037; 83540; 83550; 83605; 83735; 83880; 84153; 84443; 84484; 85025; 85044; 85610-TC; 86886; 86900; 86901; 86920; 87040; 87086; 93005; 93306; 93970; 94760; 96361; 96374; 97110-GP; 97116-GP; 97530-GP; 99285; A9503; C9113; G0378; J1815; J1885; J2270; J3490; P9021